=== PATIENT | female | born 1965 | race Caucasian/White ===

== ENCOUNTER 2017-02-05 19:36 | Observation (INO) | payer OTHER ==
[~2017-02-05] VITALS: Ht 149.9 cm; Wt 84.8 kg
[~2017-02-05 19:36] MED LIST: ALBU4TAB10 PO; AMT25 PO; ATEN50TA8 PO; BUPRTAB51 PO; ELET40TA PO; OXYC1TAB3 PO; PARO1TAB27 PO; ZERTEC PO; ZNTT/150 PO; [UNRECOGNIZED DRUG - OTHER] PO
[2017-02-05] MEDS ORDERED: NITROGLYCERIN OINT 2% 1GM PACKET EXT STA (20:06)
[2017-02-05 20:17] LABS: BASO % 0.1 %; BASO ABS # 0.01 K/uL (0-0.2); COMPLETE YES; HEMATOCRIT 37.2 % (37-47); IG% 0.6 %; LYMPH % 9.1 %; LYMPH ABS # 0.74 K/uL (1.2-3.4); MEAN CORPUSCULAR HEMOGLOBIN 27.2 pg (25-34); MEAN CORPUSCULAR HGB CONC 32.8 g/dl (32-36); MEAN PLATELET VOLUME 8.7 fL (7.4-10.4); MONO % 1.2 %; PLATELET COUNT 297 K/uL (130-400); RED BLOOD COUNT 4.48 M/uL (4.2-5.4); WHITE BLOOD COUNT 8.13 K/uL (4.8-10.8)
--- NOTE | 2017-02-05 20:19 | DIAGNOSTIC IMAGING REPORT ---
CHEST ONE VIEW PORTABLE CLINICAL HISTORY: Dyspnea, tachycardia, substernal chest pain COMPARISON STUDY: No previous studies for comparison. FINDINGS: The heart is normal in size. There is no failure. There is no focal pulmonary consolidation. There are no pleural effusions. No pneumothorax is visualized.[ IMPRESSION: No active disease in the chest. Electronically signed by: Emmanuel Chacon M.D. 02/05/2017 8:18 PM Dictated Date/Time: 02/05/2017 8:18 PM
[2017-02-05 20:25] LABS: INR 0.9 (0.9-1.1)
[2017-02-05 20:41] LABS: ALT/SGPT 21 U/L (12-78); AST/SGOT 7 U/L (15-37); BLOOD UREA NITROGEN 6 mg/dl (7-18); BUN/CREATININE RATIO 6.3 (10-20); CARBON DIOXIDE 20 mmol/L (21-32); CHLORIDE 106 mmol/L (98-107); CREATININE 0.95 mg/dl (0.60-1.20); GLUCOSE 218 mg/dl (70-99); MAGNESIUM 2.1 mg/dl (1.8-2.4); POTASSIUM 3.8 mmol/L (3.5-5.1); SODIUM 138 mmol/L (136-145)
[2017-02-05 20:49] LABS: BENZODIAZEPINE, URINE NEG (NEG); COCAINE,URINE NEG (NEG); PHENCYCLIDINE, URINE NEG (NEG)
[2017-02-05 20:52] LABS: ALKALINE PHOSPHATASE 62 U/L (45-117); THYROID STIMULATING HORMONE 0.416 uIu/ml (0.300-4.500)
--- NOTE | 2017-02-05 20:57 | DIAGNOSTIC IMAGING REPORT ---
CT HEAD WITHOUT CONTRAST (CT) CLINICAL HISTORY: Sudden onset severe headache. Worst headache of life. COMPARISON STUDY: No previous studies for comparison. TECHNIQUE: Axial CT of the brain is performed from the vertex to the skull base. IV contrast was not administered for this examination. CT DOSE: 537.48 mGy.cm FINDINGS: No intra or extra-axial mass lesions are visualized. There is no CT evidence of acute cortical infarction. There is no evidence of midline shift. There is no acute hemorrhage. No calvarial fractures are visualized. There is no evidence of pathologic ventricular dilatation. There is no evidence of acute sinusitis IMPRESSION: No acute intracranial findings Electronically signed by: Emmanuel Chacon M.D. 02/05/2017 8:56 PM Dictated Date/Time: 02/05/2017 8:55 PM
[2017-02-05] MEDS ORDERED: AMIT100T2 PO (21:06)
[2017-02-05] MEDS ORDERED: NORGTAB39 PO (21:06)
[2017-02-05] MEDS ORDERED: RANI300T PO (21:06)
[2017-02-05] MEDS ORDERED: PRVHFAIN INH (21:06)
[2017-02-05] MEDS ORDERED: ASTN NAE (21:13)
[2017-02-05] MEDS ORDERED: FLUT0.15 NAE (21:13)
[2017-02-05] MEDS ORDERED: PANT40TA PO (21:13)
[2017-02-05] MEDS ORDERED: CITA10TA8 PO (21:13)
[2017-02-05] MEDS ORDERED: LISI-725 PO (21:13)
[2017-02-05] MEDS ORDERED: CETI10TA10 PO (21:13)
[2017-02-05] MEDS ORDERED: METO50TA7 PO (21:13)
[2017-02-05] MEDS ORDERED: PRED10TA PO (21:13)
[2017-02-05] MEDS ORDERED: SODIUM CHLORIDE 0.9% 1000ML 1,000 ML IV STA (21:16)
[2017-02-05] MEDS ORDERED: ACETAMINOPHEN 500 MG TAB PO STA (21:16)
--- NOTE | 2017-02-05 23:15 | History and Physical ---
History & Physical Date & Time of Service: Feb 05, 2017 at 23:15 Chief Complaint: Chest Pains And Heart Rate Primary Care Physician: Miroslava Wiggins D.O. History of Present Illness Source: patient Patient is a 51 Yr old female with PMH of Anxiety disorder, IBS, HTN, GERD, DENISE on CPAP, Asthma, Migraine and other problems presents for evaluation of chest pain. 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 D-dimer was normal at that time. She has been treated with prednisone taper for possible Asthma exacerbation. States having palpitations since Thursday and complains of retrosternal dull chest pain today which is intermittent, radiates to left arm, started at rest without any aggravating/ relieving factors. Reports associated nausea, SOB, diaphoresis with chest pain. Reports having a lot of stress secondary to her daughter having issues at school. Currently while in ED, denies chest pain, SOb, wheezing. Also denies history of fever, chills, abd pain, diarrhea, urinary symptoms. Has had headache which is occipital and frontal which improved currently. Past Medical/Surgical History PMH Anxiety disorder IBS HTN GERD DENISE on CPAP Asthma Migraine Family History Reviewed, Not relevant Social History Smoking Status: Never Smoker Alcohol Use: socially Drug Use: none Multi-Drug Resistant Organisms History of MDRO: No Allergies Coded Allergies: Aspirin (Verified Allergy, Intermediate, HIVES, 07/12/13) Montelukast (Verified Allergy, Intermediate, HIVES, 07/12/13) Naproxen (Verified Allergy, Intermediate, HIVES, 07/12/13) NSAIDs (Verified Allergy, Unknown, UNKNOWN, 07/12/13) Home Medications Scheduled Amitriptyline Hcl (Elavil), 100 MG PO HS Azelastine Hcl (Astelin Nasal [place]), 1-2 SPRAYS KAY BID Cetirizine Hcl (Zyrtec), 10 MG PO HS Citalopram Hydrobromide (Celexa), 30 MG PO DAILY Fluticasone Propionate (Nasal) (Flonase Allergy Relief), 1 SPRAY KAY BID Lisinopril (Zestril), 20 MG PO DAILY Metoprolol Succ (Toprol Xl) (Toprol-Xl), 50 MG PO DAILY Norgestimate-Ethinyl Estradiol (Ortho Tri-Cyclen Lo), 1 TAB PO DAILY Pantoprazole (Protonix), 40 MG PO DAILY Prednisone Tab (Prednisone), 10 MG PO UD Ranitidine Hcl (Zantac), 300 MG PO HS Scheduled PRN Albuterol (Ventolin Hfa), 2 PUFFS INH UD PRN for Asthma Symptoms Review of Systems See HPI for pertinent positives & negatives. A total of 10 systems reviewed and were otherwise negative. Physical Exam Vital Signs Date Time Temp Pulse Resp B/P Pulse Ox O2 Delivery O2 Flow Rate FiO2 02/05/17 22:57 108 18 142/93 95 Room Air 02/05/17 22:13 119 02/05/17 21:53 109 18 168/97 95 Room Air 02/05/17 21:05 118 20 168/103 95 Room Air 02/05/17 20:38 120 18 96 Room Air 02/05/17 20:03 96 Room Air 02/05/17 19:40 36.7 132 22 208/109 96 Room Air General Appearance: WD/WN, no apparent distress, + obese Head: normocephalic, atraumatic Eyes: normal inspection, PERRL, EOMI, sclerae normal ENT: normal ENT inspection, hearing grossly normal Neck: supple, trachea midline Respiratory/Chest: chest non-tender, lungs clear, normal breath sounds, no respiratory distress, no accessory muscle use, + pertinent finding (Trace pedal edema) Cardiovascular: regular rate, rhythm, no murmur, normal peripheral pulses, + tachycardia Abdomen/GI: normal bowel sounds, non tender, soft, no organomegaly Back: normal inspection Extremities/Musculoskelatal: normal inspection, no calf tenderness, + pertinent finding (Trcae pedal edema) Neurologic/Psych: outside sales engineer II-XII nml as tested, no motor/sensory deficits, alert, normal mood/affect, oriented x 3 Skin: normal color, warm/dry Lymphatic: no adenopathy Diagnostics Laboratory Results Results Past 24 Hours Test 02/05/17 20:00 02/05/17 20:06 02/05/17 20:15 Range/Units White Blood Count 8.13 4.8-10.8 K/uL Red Blood Count 4.48 4.2-5.4 M/uL Hemoglobin 12.2 12.0-16.0 g/dL Hematocrit 37.2 37-47 % Mean Corpuscular Volume 83.0 80-100 fL Mean Corpuscular Hemoglobin 27.2 25-34 pg Mean Corpuscular Hemoglobin Concent 32.8 32-36 g/dl Platelet Count 297 130-400 K/uL Mean Platelet Volume 8.7 7.4-10.4 fL Neutrophils (%) (Auto) 89.0 % Lymphocytes (%) (Auto) 9.1 % Monocytes (%) (Auto) 1.2 % Eosinophils (%) (Auto) 0.0 % Basophils (%) (Auto) 0.1 % Neutrophils # (Auto) 7.23 1.4-6.5 K/uL Lymphocytes # (Auto) 0.74 1.2-3.4 K/uL Monocytes # (Auto) 0.10 0.11-0.59 K/uL Eosinophils # (Auto) 0.00 0-0.5 K/uL Basophils # (Auto) 0.01 0-0.2 K/uL RDW Standard Deviation 44.2 36.4-46.3 fL RDW Coefficient of Variation 14.5 11.5-14.5 % Immature Granulocyte % (Auto) 0.6 % Immature Granulocyte # (Auto) 0.05 0.00-0.02 K/uL Prothrombin Time 10.0 9.0-12.0 SECONDS Prothromb Time International Ratio 0.9 0.9-1.1 Activated Partial Thromboplast Time 25.4 21.0-31.0 SECONDS Partial Thromboplastin Ratio 1.0 Sodium Level 138 136-145 mmol/L Potassium Level 3.8 3.5-5.1 mmol/L Chloride Level 106 98-107 mmol/L Carbon Dioxide Level 20 21-32 mmol/L Anion Gap 12.0 3-11 mmol/L Blood Urea Nitrogen 6 7-18 mg/dl Creatinine 0.95 0.60-1.20 mg/dl Est Creatinine Clear Calc Drug Dose 69.0 ml/min Estimated GFR () 80.4 Estimated GFR (Non- 69.4 BUN/Creatinine Ratio 6.3 10-20 Random Glucose 218 70-99 mg/dl Calcium Level 9.0 8.5-10.1 mg/dl Magnesium Level 2.1 1.8-2.4 mg/dl Total Bilirubin 0.4 0.2-1 mg/dl Aspartate Amino Transf (AST/SGOT) 7 15-37 U/L Alanine Aminotransferase (ALT/SGPT) 21 12-78 U/L Alkaline Phosphatase 62 45-117 U/L Total Creatine Kinase 62 26-192 U/L Creatine Kinase MB < 0.5 0.5-3.6 ng/ml Creatine Kinase MB Ratio 0-3.0 Total Protein 7.5 6.4-8.2 gm/dl Albumin 3.8 3.4-5.0 gm/dl Globulin 3.7 2.5-4.0 gm/dl Albumin/Globulin Ratio 1.0 0.9-2 Lipase 143 73-393 U/L Thyroid Stimulating Hormone (TSH) 0.416 0.300-4.500 uIu/ml Bedside D-Dimer 241 0-450 ng/mlFEU Bedside Troponin I 0.000 0-0.045 ng/ml SB-Cbs-T-Type Natriuretic Peptide 48 0-900 pg/ml Urine Test NEG NEG Urine Opiates Screen NEG NEG Urine Methadone, Qualitative NEG NEG Urine Barbiturates NEG NEG Urine Phencyclidine (PCP) Level NEG NEG Ur Amphetamine/Methamphetamine NEG NEG MDMA (Ecstasy) Screen NEG NEG Urine Benzodiazepines Screen NEG NEG Urine Cocaine Metabolite NEG NEG Urine Marijuana (THC) NEG NEG Diagnostic Radiology CT Head: No acute intracranial findings CXR: No active disease in the chest. EKG EKG: Sinus Tachycardia Impression Assessment and Plan Chest Pain: R/O ACS Likely secondary to anxiety/Uncontrolled HTN Risk factors: HTN, Obesity Initial troponin:Negative EKG:Sinus tachycardia Negative D-dimer CXR: Unremarkable Check ECHO Trend serial cardiac enzymes, repeat EKG, fasting lipid panel in AM Patient is allergic to Aspirin, Continue beta willie Oxygen PRN Consider Stress test in AM NPO after midnight Cardiology consulted Hypertensive Urgency/Tachycardia: Likely secondary to anxiety issues Negative d-dimer, less likely PE Continue lisinopril, BB Lopressor PRN Currently BP improved Headache: Likely secondary to migraine CT head: No acute pathology Continue amitriptyline H/O asthma: Doesn't seemed to have exacerbation clinically Continue steroid taper DuoNeb PRN Anxiety disorder: Continue home meds GERD: Continue PPI DENISE: Continue CPAP Qhs DVT Px: SCDs Code Status: Full Code Disposition: Admit in Tele
[2017-02-06] MEDS ORDERED: SODIUM CHLORIDE 0.9% 1000ML 1,000 ML IV ONE
[2017-02-06] MEDS ORDERED: ALBUT/IPRATROP 3MG/0.5MG NEB 3 ML VIAL INH PRN
[2017-02-06] MEDS ORDERED: ONDANSETRON INJ 2 MG/ML 2 ML VIAL IV PRN
[2017-02-06] MEDS ORDERED: ACETAMINOPHEN 325 MG TAB PO PRN
[2017-02-06] MEDS ORDERED: NITROGLYCERIN 0.4 MG SL PER TAB CHARGE SL PRN
[2017-02-06] MEDS ORDERED: METOPROLOL TARTRATE 1 MG/ML VIAL IV PRN (00:15)
[2017-02-06] MEDS ORDERED: IV FLUIDS COMPLETED PRN (00:45)
[2017-02-06 01:00] VITALS: BP 159/86; PULSE 105; TEMP 36.7; O2SAT 95; Ht 149.9 cm; Wt 84.8 kg
--- NOTE | 2017-02-06 02:01 | EMERGENCY ROOM VISIT NOTE ---
History First contact with patient: 19:47 Chief Complaint: CHEST PAIN Stated Complaint: CHEST PAIN Nursing Triage Summary: Patient states "I'm having some chest pains, my heart rate has been up for the last few days and it got worse." Reports shortness of breath, diaphoresis, nausea, and headache. History of Present Illness The patient is a 51 year old female who presents to the Emergency Room via private vehicle with complaints of "chest pain". The patient states that Thursday she was working at [employer], when she was recommended to seek medical care as her heart rate was elevated as well as her blood pressure. She states that she had a d-dimer performed which was normal. She was then placed upon prednisone. She notes that Thursday her heart rate continue to increase persistently above 100, and her blood pressure was 150/84. She takes 2 blood pressure medications. Today she felt very warm, and her heart was racing. Her chest pain has been substernal which began this evening around 6:00 PM and radiating into her left arm. She rates the chest pain as a 5 /10. There is associated headache that she rates as a 6/10. She has never had this before. Review of Systems A complete 10-point Review of Systems was discussed with the patient, with pertinent positives and negatives listed in the History of Present Illness. All remaining Review of Systems questions can be considered negative unless otherwise specified. Past Medical/Surgical History Medical Problems: (1) Chest pain Asthma, DENISE, GERD, hypertension, dependent edema, hyperprolactinemia, anxiety. Family History Mother hypertension. Father MN/CABG age 50s Social History Smoking Status: Never Smoker Social History: Patient is . 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 She lives with her daughter. Current/Historical Medications Scheduled Amitriptyline Hcl (Elavil), 100 MG PO HS Azelastine Hcl (Astelin Nasal [place]), 1-2 SPRAYS KAY BID Cetirizine Hcl (Zyrtec), 10 MG PO HS Citalopram Hydrobromide (Celexa), 30 MG PO DAILY Fluticasone Propionate (Nasal) (Flonase Allergy Relief), 1 SPRAY KAY BID Lisinopril (Zestril), 20 MG PO DAILY Metoprolol Succ (Toprol Xl) (Toprol-Xl), 50 MG PO DAILY Norgestimate-Ethinyl Estradiol (Ortho Tri-Cyclen Lo), 1 TAB PO DAILY Pantoprazole (Protonix), 40 MG PO DAILY Prednisone Tab (Prednisone), 10 MG PO UD Ranitidine Hcl (Zantac), 300 MG PO HS Scheduled PRN Albuterol (Ventolin Hfa), 2 PUFFS INH UD PRN for Asthma Symptoms Allergies Coded Allergies: Aspirin (Verified Allergy, Intermediate, HIVES, 07/12/13) Montelukast (Verified Allergy, Intermediate, HIVES, 07/12/13) Naproxen (Verified Allergy, Intermediate, HIVES, 07/12/13) NSAIDs (Verified Allergy, Unknown, UNKNOWN, 07/12/13) Physical Exam Vital Signs Date Time Temp Pulse Resp B/P Pulse Ox O2 Delivery O2 Flow Rate FiO2 02/05/17 22:57 108 18 142/93 95 Room Air 02/05/17 22:13 119 02/05/17 21:53 109 18 168/97 95 Room Air 02/05/17 21:05 118 20 168/103 95 Room Air 02/05/17 20:38 120 18 96 Room Air 02/05/17 20:03 96 Room Air 02/05/17 19:40 36.7 132 22 208/109 96 Room Air Pain Rating (0-10): 3.0 Physical Exam VITAL SIGNS - Vital signs and nursing notes were reviewed. Afebrile, hypertensive at 208/109, tachycardic at a rate of 132 bpm and is saturating well on room air 96%. GENERAL -51-year-old female appearing her stated age who is in no acute distress. Communicates well with provider and answers questions appropriately. SKIN - Without rashes. No petechial rashes. Patient is slightly diaphoretic. HEAD - NC/AT. EYES - PERRL with EOMI bilaterally. Sclera anicteric. Palpebral conjunctiva pink and moist with no injection noted. EARS - No deformities of external structures noted on gross examination bilaterally. NOSE - Midline and without cyanosis. No epistaxis or purulent drainage noted. MOUTH/OROPHARYNX - Without perioral cyanosis. Buccal mucosa pink and moist and without leukoplakia. Tongue midline with equal elevation of palate bilaterally. No tonsillar hypertrophy, erythema, or exudates noted. Fair dentition noted. NECK - Neck with FROM. Supple to palpation. No lymphadenopathy noted. No nuchal rigidity. LUNGS - Chest wall symmetric without accessory muscle use, intercostals retractions, or central cyanosis. Normal vesicular breath sounds CTA B/L. No wheezes, rales, or rhonchi appreciated. CARDIAC - RRR with S1/S2. No murmur, rubs, or gallops appreciated. ABDOMEN - Abdominal contour without pulsations or visible masses. BS normoactive all four quadrants. No tenderness, palpable masses, hepatosplenomegaly, or ascites noted. EXTREMITIES - No clubbing or peripheral cyanosis. No pretibial edema present. + 5/5 strength noted in UE/LE bilaterally. NEUROLOGIC - Cranial nerves II through XII grossly intact. PSYCH - Pt is very pleasant and interacts well with examiner. Medical Decision & Procedures ER Provider Diagnostic Interpretation: CHEST ONE VIEW PORTABLE CLINICAL HISTORY: Dyspnea, tachycardia, substernal chest pain COMPARISON STUDY: No previous studies for comparison. FINDINGS: The heart is normal in size. There is no failure. There is no focal pulmonary consolidation. There are no pleural effusions. No pneumothorax is visualized.[ IMPRESSION: No active disease in the chest. Electronically signed by: Emmanuel Chacon M.D. 02/05/2017 8:18 PM Dictated Date/Time: 02/05/2017 8:[address] HEAD WITHOUT CONTRAST (CT) CLINICAL HISTORY: Sudden onset severe headache. Worst headache of life. COMPARISON STUDY: No previous studies for comparison. TECHNIQUE: Axial CT of the brain is performed from the vertex to the skull base. IV contrast was not administered for this examination. CT DOSE: 537.48 mGy.cm FINDINGS: No intra or extra-axial mass lesions are visualized. There is no CT evidence of acute cortical infarction. There is no evidence of midline shift. There is no acute hemorrhage. No calvarial fractures are visualized. There is no evidence of pathologic ventricular dilatation. There is no evidence of acute sinusitis IMPRESSION: No acute intracranial findings Electronically signed by: Emmanuel Chacon M.D. 02/05/2017 8:56 PM Laboratory Results 02/05/17 20:00 Red Blood Count 4.48, Mean Corpuscular Volume 83.0, Mean Corpuscular Hemoglobin 27.2, Mean Corpuscular Hemoglobin Concent 32.8, Mean Platelet Volume 8.7, Neutrophils (%) (Auto) 89.0, Lymphocytes (%) (Auto) 9.1, Monocytes (%) (Auto) 1.2, Eosinophils (%) (Auto) 0.0, Basophils (%) (Auto) 0.1, Neutrophils # (Auto) 7.23, Lymphocytes # (Auto) 0.74, Monocytes # (Auto) 0.10, Eosinophils # (Auto) 0.00, Basophils # (Auto) 0.01 02/05/17 20:00 Test 02/05/17 20:00 02/05/17 20:06 02/05/17 20:15 White Blood Count 8.13 K/uL (4.8-10.8) Red Blood Count 4.48 M/uL (4.2-5.4) Hemoglobin 12.2 g/dL (12.0-16.0) Hematocrit 37.2 % (37-47) Mean Corpuscular Volume 83.0 fL (80-100) Mean Corpuscular Hemoglobin 27.2 pg (25-34) Mean Corpuscular Hemoglobin Concent 32.8 g/dl (32-36) Platelet Count 297 K/uL (130-400) Mean Platelet Volume 8.7 fL (7.4-10.4) Neutrophils (%) (Auto) 89.0 % Lymphocytes (%) (Auto) 9.1 % Monocytes (%) (Auto) 1.2 % Eosinophils (%) (Auto) 0.0 % Basophils (%) (Auto) 0.1 % Neutrophils # (Auto) 7.23 K/uL (1.4-6.5) Lymphocytes # (Auto) 0.74 K/uL (1.2-3.4) Monocytes # (Auto) 0.10 K/uL (0.11-0.59) Eosinophils # (Auto) 0.00 K/uL (0-0.5) Basophils # (Auto) 0.01 K/uL (0-0.2) RDW Standard Deviation 44.2 fL (36.4-46.3) RDW Coefficient of Variation 14.5 % (11.5-14.5) Immature Granulocyte % (Auto) 0.6 % Immature Granulocyte # (Auto) 0.05 K/uL (0.00-0.02) Prothrombin Time 10.0 SECONDS (9.0-12.0) Prothromb Time International Ratio 0.9 (0.9-1.1) Activated Partial Thromboplast Time 25.4 SECONDS (21.0-31.0) Partial Thromboplastin Ratio 1.0 Anion Gap 12.0 mmol/L (3-11) Est Creatinine Clear Calc Drug Dose 69.0 ml/min Estimated GFR () 80.4 Estimated GFR (Non- 69.4 BUN/Creatinine Ratio 6.3 (10-20) Calcium Level 9.0 mg/dl (8.5-10.1) Magnesium Level 2.1 mg/dl (1.8-2.4) Total Bilirubin 0.4 mg/dl (0.2-1) Aspartate Amino Transf (AST/SGOT) 7 U/L (15-37) Alanine Aminotransferase (ALT/SGPT) 21 U/L (12-78) Alkaline Phosphatase 62 U/L (45-117) Total Creatine Kinase 62 U/L (26-192) Total Protein 7.5 gm/dl (6.4-8.2) Albumin 3.8 gm/dl (3.4-5.0) Globulin 3.7 gm/dl (2.5-4.0) Albumin/Globulin Ratio 1.0 (0.9-2) Lipase 143 U/L (73-393) Thyroid Stimulating Hormone (TSH) 0.416 uIu/ml (0.300-4.500) Bedside D-Dimer 241 ng/mlFEU (0-450) Bedside Troponin I 0.000 ng/ml (0-0.045) UH-Eaw-F-Type Natriuretic Peptide 48 pg/ml (0-900) Urine Test NEG (NEG) Urine Opiates Screen NEG (NEG) Urine Methadone, Qualitative NEG (NEG) Urine Barbiturates NEG (NEG) Urine Phencyclidine (PCP) Level NEG (NEG) Ur Amphetamine/Methamphetamine NEG (NEG) MDMA (Ecstasy) Screen NEG (NEG) Urine Benzodiazepines Screen NEG (NEG) Urine Cocaine Metabolite NEG (NEG) Urine Marijuana (THC) NEG (NEG) Medications Administered Medications (Trade) Dose Ordered Sig/Barron Route Start Time Stop Time Status Last Admin Dose Admin Nitroglycerin 0.5 inch 0.5 inch NOW STAT EXT 02/05/17 20:06 02/05/17 20:07 DC 02/05/17 20:26 0.5 INCH Sodium Chloride (Nss 1000ml) 1,000 ml @ 999 mls/hr Q1H1M STAT IV 02/05/17 21:16 02/05/17 22:16 DC 02/05/17 21:16 999 MLS/HR Acetaminophen (Tylenol Tab) 500 mg NOW STAT PO 02/05/17 21:16 02/05/17 21:17 DC 02/05/17 21:38 500 MG Medical Decision Patient was seen and evaluated as above. After obtaining a thorough history and physical examination IV access was initiated and the above workup was performed. The patient presents with chest pain that began this evening as well as worst headache of her life which was of sudden onset. Headache began less than 6 hours ago. She has a history of headaches. CT scan of the head was obtained and attempt to rule out sub-arachnoid hemorrhage. This was negative for acute process. Patient was given Tylenol for her pain with relief of the headache symptoms and nitroglycerin for the chest pain with relief. She was also hydrated with a liter of normal saline. Her laboratory studies reveal no leukocytosis or anemia. Coagulation studies are negative. Point care d- dimer negative. Initial CMP reveals carbon dioxide at 20, anion gap of 12 and BUN at 6, glucose is elevated at 218. Patient has no history of diabetes. She was educated to have this further evaluated by her family doctor. Initial troponin was negative. BNP was negative. Lipase and TSH are negative. Urine negative. Urine drug screen was negative. Patient's chest x-ray and head CT are negative. Patient this time appears to have chest pain however emergency department initial evaluation does not reveal evidence of ACS, however this cannot be completely excluded. EKG reveals sinus tachycardia, there is an ST segment abnormality noted at a rate of 133 bpm. No previous for comparison. At this time I do believe is appropriate to admit the patient for further evaluation and management for her chest pain. I did speak with the admission team who agreed to evaluate the patient. Please refer to further documentation regarding her stay. Patient was also in agreement to stay for further evaluation and management. In evaluation and treatment of this patient the following differential diagnoses were entertained: AMI, MN, PE, pleurisy, pericarditis, GERD, erosive esophagitis, among others. Impression Primary Impression: Chest pain Departure Information Dispostion Admitted as an inpatient Condition FAIR Referrals Miroslava Wiggins D.O. (PCP) Forms HOME CARE DOCUMENTATION FORM, IMPORTANT VISIT INFORMATION Patient Instructions [facility]
[2017-02-06] MEDS ORDERED: METOPROLOL SUCC 50MG EXT REL TAB PO ONE (02:30)
[2017-02-06] MEDS ORDERED: AMITRIPTYLINE HCL 100 MG TAB PO ONE (02:30)
[2017-02-06 03:49] VITALS: BP 142/76; PULSE 106; TEMP 36.7; O2SAT 97
[2017-02-06 07:20] LABS: CHOLESTEROL 126 mg/dl (0-200); HDL CHOLESTEROL 42 mg/dl; LDL CHOLESTEROL CALCULATED 22 mg/dl; TRIGLYCERIDES 311 mg/dl (0-150); VERY LOW DENSITY LIPOPROT CALC 62 mg/dl
[2017-02-06 08:21] VITALS: BP 161/89; PULSE 98; TEMP 36.6; O2SAT 94
[2017-02-06] MEDS ORDERED: CITALOPRAM 20 MG TAB PO SCH (09:00)
[2017-02-06] MEDS ORDERED: METOPROLOL SUCC 50MG EXT REL TAB PO SCH (09:00)
[2017-02-06] MEDS ORDERED: PANTOprazole SOD 40 MG TAB PO SCH (09:00)
[2017-02-06] MEDS ORDERED: LISINOPRIL 20 MG TAB PO SCH (09:00)
[2017-02-06] MEDS ORDERED: FLUTICASONE PROPIONATE NA SPR 16 GM BTL NAE SCH (09:00)
--- NOTE | 2017-02-06 09:01 | ECHOCARDIOGRAM REPORT ---
*NOTICE TO RECEIVING LIBERTARIAN AGENCY This information is strictly Confidential and protected under [place] law. [place] law prohibits you from making any further disclosure of this information unless further disclosure is expressly permitted by the written consent of the person to whom it pertains or is authorized by law. A general authorization for the release of medical or other information is not sufficient for this purpose. Hospital accepts no responsibility if the information is made available to any other person, INCLUDING THE PATIENT. Interpretation Summary * Name: RONIT LINDO Study Date: 02/06/2017 07:20 AM BP: 142/76 mmHg * Patient Location: C.2E\S\E209\S\1 HR: 106 * : 1965 (M/d/yyyy) Gender: Female Height: 60 in * Age: 51 yrs Ethnicity: CA Weight: 197 lb * Ordering Physician: Gio Rodney * Performed By: Iman Caban RDCS * * Reason For Study: Chest pain * BSA: 1.9 m2 * -- Conclusions -- * The left ventricle is normal in size. * Left ventricular systolic function is normal. * Ejection Fraction = 60-65%. * The right ventricle is normal size. * The right ventricular systolic function is normal. * The left atrial size is normal. * Right atrial size is normal. * No significant vavular pathology. Procedure Details * A complete two-dimensional transthoracic echocardiogram was performed (2D, M-mode, Doppler and color flow Doppler). Left Ventricle * The left ventricle is normal in size. * Ejection Fraction = 60-65%. * Left ventricular systolic function is normal. * The left ventricular wall motion is normal. Right Ventricle * The right ventricle is normal size. * The right ventricular systolic function is normal. Atria * The left atrial size is normal. * Right atrial size is normal. * The interatrial septum is intact with no evidence for an atrial septal defect. Mitral Valve * The mitral valve anatomy is normal. * Significant mitral regurgitation is absent. Tricuspid Valve * The tricuspid valve anatomy is normal. * Significant tricuspid regurgitation is absent. Aortic Valve * The aortic valve is normal in structure and function. Pulmonic Valve * The pulmonic valve is not well visualized. * There is no significant pulmonary regurgitation. Great Vessels * The aortic root and proximal ascending aorta are normal sized. Pericardium/Pleural * There is no pericardial effusion. MMode 2D Measurements and Calculations IVSd 0.79 cm LVIDd 4.6 cm LVIDs 2.9 cm LVPWd 0.90 cm IVS/LVPW 0.87 FS 36.6 % EDV(Teich) 96.1 ml ESV(Teich) 32.3 ml EF(Teich) 66.4 % EDV(cubed) 95.7 ml ESV(cubed) 24.4 ml EF(cubed) 74.5 % LV mass(C)d 125.8 grams LV mass(C)dI 67.8 grams/m\S\2 CO(Teich) 6.2 l/min CI(Teich) 3.3 l/min/m\S\2 SV(Teich) 63.8 ml SI(Teich) 34.4 ml/m\S\2 CO(cubed) 6.9 l/min CI(cubed) 3.7 l/min/m\S\2 SV(cubed) 71.3 ml SI(cubed) 38.4 ml/m\S\2 Ao root diam 2.8 cm Ao root area 6.2 cm\S\2 ACS 1.7 cm LA dimension 2.5 cm asc Aorta Diam 3.0 cm LA/Ao 0.91 LVOT diam 2.0 cm LVOT area 3.3 cm\S\2 LVAd ap4 21.9 cm\S\2 LVLd ap4 7.3 cm EDV(MOD-sp4) 54.1 ml LVAs ap4 11.6 cm\S\2 LVLs ap4 5.7 cm ESV(MOD-sp4) 20.4 ml EF(MOD-sp4) 62.3 % LVAd ap2 18.7 cm\S\2 LVLd ap2 6.8 cm EDV(MOD-sp2) 42.9 ml LVAs ap2 9.7 cm\S\2 LVLs ap2 5.0 cm ESV(MOD-sp2) 15.8 ml EF(MOD-sp2) 63.2 % CO(MOD-sp4) 3.3 l/min CI(MOD-sp4) 1.8 l/min/m\S\2 SV(MOD-sp4) 33.7 ml SI(MOD-sp4) 18.2 ml/m\S\2 CO(MOD-sp2) 2.6 l/min CI(MOD-sp2) 1.4 l/min/m\S\2 SV(MOD-sp2) 27.1 ml SI(MOD-sp2) 14.6 ml/m\S\2 Doppler Measurements and Calculations MV E max felix 89.7 cm/sec MV A max felix 82.5 cm/sec MV E/A 1.1 MV dec time 0.31 sec Ao V2 max 155.6 cm/sec Ao max PG 9.7 mmHg Ao max PG (full) 6.2 mmHg GRUPO(V,A) 2.0 cm\S\2 GRUPO(V,D) 2.0 cm\S\2 LV V1 max PG 3.5 mmHg LV V1 max 93.1 cm/sec PA V2 max 114.0 cm/sec PA max PG 5.2 mmHg PA acc slope 876.1 cm/sec\S\2 PA acc time 0.09 sec TR max felix 142.4 cm/sec PA pr(Accel) 39.4 mmHg
--- NOTE | 2017-02-06 09:35 | Cardiology Consultation ---
Cardiology Consultation Date of Consultation: Feb 06, 2017 Requesting Physician: Dr. Rodney Attending Product Sales Representative: Dr. Gomes (Jamee Swift PA-C) History of Present Illness Patient is a 51 year old female with a past history of DENISE, asthma, GERD, hypertension, anxiety, dependent edema, and hyperprolactinemia. She denies history of cardiovascular disease, NH, CHF, arrhythmia, murmur. No prior stress test or echo. SHe does state she has family history of cardiovascular disease with father having CABG age 50's. Other family members with hypertension. She states she has not been feeling well over the last few weeks with worsening SOB, chest tightness and palpitations. She admits to alot of emotional stress at home with her daughter and school issues. She was recently treated by PCP for episode of bronchitis with steroid taper. Last Thursday, symptoms worsened, patient noted palpitations and SOB. She works at [employer] and they reported her HR was in the 130's with hypertension. She subsequently saw PCP, D-dimer was unremarkable. BP was controlled in the office. She was continued on Toprol 50 and lisinopril 20 mg. She states yesterday evening she noted chest tightness with radiation to left arm associated with SOB. She came to ER for evaluation. HR was elevated. BP was elevated. Symptoms improved with IV metoprolol. Chest pain also resolved with improvement in HR and BP. EKG demonstrated mild ST/T wave abnormality. No prior EKG's for comparison. Cardiac enzymes unremarkable x3. At time of consult, patient feeling better. No recurrent chest pain or SOB. No sense of palpitations. BP is mildly elevated this AM. States she normally takes Toprol and lisinopril at night and did not take it last night. Is currently getting her medications. No dizziness, syncope or near syncope. No orthopnea, PND or LE edema. (Jamee Swift PA-C) History Past Medical History: Allergic rhinitis Anxiety Asthma Benign neoplasm of pituitary gland Hyperprolactinemia HTN, goal below 140/90 IBS (irritable bowel syndrome) Migraine Panic disorder Surgical History DELIVERY 2000 COLONOSCOPY, DIAGNOSTIC (RECTUM) 04/11/2016 normal, repeat 10 yrs EGD, FLEXIBLE, DIAGNOSTIC 04/11/2016 normal HYSTEROSCOPY W/BIOPSY AND/OR POLYPECTOMY W/WO D&C N/A 01/31/2016 HYSTEROSCOPY WITH BIOPSY AND/OR POLYPECTOMY WITH OR WITHOUT D&C performed by Anand Saab MD at OR [facility] INFORMATION 1996 Benign growth removed L1-L2 INFORMATION 07/23/04 sphenoidotomy, right and left frontal sinsotomy [id number] W/WO CONTRAST 05/07/04 Pituitary microadenoma is stable LEG/ANKLE SURGERY NEC 04/21/08 left ankle surgery MAMMOGRAM - 1 BREAST 11/10/07 right breast Birad Code [address] cohen PELVIS US, TRANS-ABDOMINAL 09/14/03 negative for abcess REMOVAL OF NOSE POLYP(S), AMANDA 2003? Nose Polyp(S) Excision,Amanda -Dr. Muniz REMOVE TONSILS & ADENOIDS, UNDER 12 SINUS SURGERY PROCEDURE NEC 2003? Dr. Muniz Social History: . Lives with daughter. 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. No history of tobacco abuse. Rare alcohol use. Family History: Father with NH/CABG age 50's, now with pacemaker/defib in 80's. Mother with HTN. (Jamee Swift PA-C) Review Of Systems General: The patient denies weight change, night sweats, fever, chills. Head: The patient denies headache and prior head trauma. Cardiovascular: The patient denies chest pain or chest discomfort, dyspnea on exertion, palpitations, PND, orthopnea, edema, spontaneous shortness of breath, syncope and near syncope. Pulmonary: The patient denies cough, wheeze, pleurisy, hemoptysis, sputum, and excessive snoring. Gastrointestinal: The patient denies nausea, vomiting, diarrhea, constipation, bloating, hematemesis, hematochezia, and abdominal pain. Skin: The patient denies diaphoresis and rash. Musculoskeletal: The patient denies joint pain, joint swelling, myalgia, back pain, neck pain and prior injuries. Neurological: The patient denies prior stroke and seizures (Jamee Swift PA-C) Allergies Coded Allergies: Aspirin (Verified Allergy, Intermediate, HIVES, 07/12/13) Montelukast (Verified Allergy, Intermediate, HIVES, 07/12/13) Naproxen (Verified Allergy, Intermediate, HIVES, 07/12/13) NSAIDs (Verified Allergy, Unknown, UNKNOWN, 07/12/13) Medications Reported Home Medications Medications Dose Route/Sig Max Daily Dose Days Date Category Dose Instructions Prednisone 10 Mg Tab 10 Mg PO UD 02/05/17 Reported TAPER DOWN DOSING PRESCRIBED 02/04/2017 FOLLOWS: TAKE 5 TABLETS (50 MG) DAILY FOR 2 DAYS THEN, TAKE 4 TABLETS (40 MG) DAILY FOR 2 DAYS THEN, TAKE 3 TABLETS (30 MG) DAILY FOR 2 DAYS THEN, TAKE 2 TABLETS (20 MG) DAILY FOR 2 DAYS THEN, TAKE 1 TABLET (10 MG) DAILY FOR 2 DAYS. Protonix (Pantoprazole Sodium) 40 Mg Tab 40 Mg PO DAILY 02/05/17 Reported Celexa (Citalopram Hydrobromide) 10 Mg Tab 30 Mg PO DAILY 02/05/17 Reported Toprol-Xl (Metoprolol Succinate) 50 Mg Tabcr 50 Mg PO DAILY 02/05/17 Reported Zestril (Lisinopril) 20 Mg Tab 20 Mg PO DAILY 02/05/17 Reported Astelin Nasal [place] (Azelastine Hcl) 200 Sprays/30 Ml [place] 1-2 Sprays KAY BID 02/05/17 Reported Flonase Allergy Relief (Fluticasone Propionate (Nasal)) 50 Mcg/Act Spr 1 [place] KAY BID 02/05/17 Reported Zyrtec (Cetirizine Hcl) 10 Mg Tab 10 Mg PO HS 02/05/17 Reported Ortho Tri-Cyclen Lo (Norgestimate-Ethinyl Estradiol) 1 Tab Tab 1 Tab PO DAILY 02/05/17 Reported Ventolin Hfa (Albuterol) 60 Puffs/5400 Mcg Aers 2 Puffs INH UD PRN 02/05/17 Reported Elavil (Amitriptyline Hcl) 100 Mg Tab 100 Mg PO HS 02/05/17 Reported Zantac (Ranitidine Hcl) 300 Mg Tab 300 Mg PO HS 02/05/17 Reported (Jamee Swift PA-C) Physical Exam Vital Signs (Last 8hrs): Last 8 Hrs Date Time Temp Pulse Resp B/P Pulse Ox O2 Delivery O2 Flow Rate FiO2 02/06/17 08:21 36.6 98 16 161/89 94 Room Air 02/06/17 04:12 Room Air 02/06/17 03:49 36.7 106 22 142/76 97 Room Air 02/06/17 01:00 36.7 105 19 159/86 95 Room Air 02/06/17 00:26 108 18 154/91 95 Room Air General Appearance: Alert and Oriented x3. NAD. Head: Normocephalic Atraumatic. Eyes: PERRLA, EOMI, conjunctiva and sclera clear Neck: Supple. No carotid bruits noted. No JVD. No HJD. Respiratory: Breath sounds clear to auscultation bilaterally. No w/r/r. Cardiovascular: Reg rate and rhythm. S1 and S2 noted. No murmurs, rubs, gallops. PMI non displace. Abdomen: Normal bowel sounds, soft nontender. no abdominal bruits. Extremities: No edema, no clubbing or cyanosis. distal pulses 2/4 bilaterally. Neuro: No focal deficits. Psychiatric: Normal affect. (Jamee Swift, SABINA) Data Last 24 Hours Test 02/05/17 20:00 02/05/17 20:06 02/05/17 20:15 02/05/17 23:59 White Blood Count 8.13 K/uL Red Blood Count 4.48 M/uL Hemoglobin 12.2 g/dL Hematocrit 37.2 % Mean Corpuscular Volume 83.0 fL Mean Corpuscular Hemoglobin 27.2 pg Mean Corpuscular Hemoglobin Concent 32.8 g/dl Platelet Count 297 K/uL Mean Platelet Volume 8.7 fL Neutrophils (%) (Auto) 89.0 % Lymphocytes (%) (Auto) 9.1 % Monocytes (%) (Auto) 1.2 % Eosinophils (%) (Auto) 0.0 % Basophils (%) (Auto) 0.1 % Neutrophils # (Auto) 7.23 K/uL Lymphocytes # (Auto) 0.74 K/uL Monocytes # (Auto) 0.10 K/uL Eosinophils # (Auto) 0.00 K/uL Basophils # (Auto) 0.01 K/uL RDW Standard Deviation 44.2 fL RDW Coefficient of Variation 14.5 % Immature Granulocyte % (Auto) 0.6 % Immature Granulocyte # (Auto) 0.05 K/uL Prothrombin Time 10.0 SECONDS Prothromb Time International Ratio 0.9 Activated Partial Thromboplast Time 25.4 SECONDS Partial Thromboplastin Ratio 1.0 Sodium Level 138 mmol/L Potassium Level 3.8 mmol/L Chloride Level 106 mmol/L Carbon Dioxide Level 20 mmol/L Anion Gap 12.0 mmol/L Blood Urea Nitrogen 6 mg/dl Creatinine 0.95 mg/dl Est Creatinine Clear Calc Drug Dose 69.0 ml/min Estimated GFR () 80.4 Estimated GFR (Non- 69.4 BUN/Creatinine Ratio 6.3 Random Glucose 218 mg/dl Calcium Level 9.0 mg/dl Magnesium Level 2.1 mg/dl Total Bilirubin 0.4 mg/dl Aspartate Amino Transf (AST/SGOT) 7 U/L Alanine Aminotransferase (ALT/SGPT) 21 U/L Alkaline Phosphatase 62 U/L Total Creatine Kinase 62 U/L Creatine Kinase MB < 0.5 ng/ml Creatine Kinase MB Ratio Total Protein 7.5 gm/dl Albumin 3.8 gm/dl Globulin 3.7 gm/dl Albumin/Globulin Ratio 1.0 Lipase 143 U/L Thyroid Stimulating Hormone (TSH) 0.416 uIu/ml Bedside D-Dimer 241 ng/mlFEU Bedside Troponin I 0.000 ng/ml SA-Dom-Z-Type Natriuretic Peptide 48 pg/ml Urine Test NEG Urine Opiates Screen NEG Urine Methadone, Qualitative NEG Urine Barbiturates NEG Urine Phencyclidine (PCP) Level NEG Ur Amphetamine/Methamphetamine NEG MDMA (Ecstasy) Screen NEG Urine Benzodiazepines Screen NEG Urine Cocaine Metabolite NEG Urine Marijuana (THC) NEG Test 02/06/17 02:12 02/06/17 05:53 02/06/17 05:59 Creatine Kinase MB < 0.5 ng/ml < 0.5 ng/ml Troponin I < 0.015 ng/ml < 0.015 ng/ml Triglycerides Level 311 mg/dl Cholesterol Level 126 mg/dl HDL Cholesterol 42 mg/dl LDL Cholesterol, Calculated 22 mg/dl VLDL Cholesterol, Calculated 62 mg/dl Cholesterol/HDL Ratio 3.0 Creatine Kinase MB Ratio Imaging: Head CT on admission: IMPRESSION: No acute intracranial findings Chest xray on admission: IMPRESSION: No active disease in the chest. Echo reviewed, per report: * The left ventricle is normal in size. * Left ventricular systolic function is normal. * Ejection Fraction = 60-65%. * The right ventricle is normal size. * The right ventricular systolic function is normal. * The left atrial size is normal. * Right atrial size is normal. * No significant valvular pathology EKG: On admission, 02/05/17: Sinus tachycardia Low voltage QRS Nonspecific ST abnormality Abnormal ECG No previous ECGs available Repeat EKG this AM, 02/06/17: Normal sinus rhythm Nonspecific T wave abnormality Telemetry reviewed: Normal sinus rhythm, Sinus tachycardia rates 90-110. (Jamee Swift PA-C) Assessment & Plan 1. Chest pain/SOB -EKG with non specific ST/T wave abnormalities, no prior for comparison -Symptoms may be secondary to anxiety, sinus tach, and elevated BP? -Cardiac enzymes unremarkable -echo with normal LV function, no valvular disease -No prior stress test -She does have risk factors for CAD - family history of premature CAD, hypertension, obesity -Await repeat BP readings this AM after receiving medications. If BP improves , will schedule patient for dobutamine stress echo today to r/o ischemia. -Patient states she often has dyspnea with minimal exertion and history of asthma, and likely would not walk very far on a treadmill. 2. Hypertension -recently controlled as outpatient -continue lisinopril and toprol -monitor this AM after receiving medications 3. Sinus tachycardia - -secondary to anxiety and likely prednisone taper -continue home dose toprol -currently HR around 100, asymptomatic Case to be discussed with Dr. Gomes. (Jamee Swift PA-C) CARDIOLOGY ATTENDING ADDENDUM: The patient was seen and personally examined. Agree with Jamee Swift PA-C's findings and plans as documented above. Stress test was negative today. Ok to be D/C per hospitalist. Would like to see in follow-up. (Lit Gomes, DO)
[2017-02-06 10:06] VITALS: BP 134/76
[2017-02-06] MEDS ORDERED: DOBUTamine HCL 12.5 MG/ML 20 ML VIAL ONE (11:29)
[2017-02-06] MEDS ORDERED: METOPROLOL TARTRATE 1 MG/ML VIAL ONE (11:29)
[2017-02-06] MEDS ORDERED: ATROPINE SULFATE 0.1 MG/ML 5ML SYR ONE (11:29)
--- NOTE | 2017-02-06 12:37 | Progress Note ---
Medicine Progress Note Date & Time of Visit: Feb 06, 2017 at 12:08. Subjective Pt was seen and examined Lying in bed with no distress Pt said that her palpitation improved denies any chest pain at this time breathing is much better Objective Last 8 Hrs Date Time Temp Pulse Resp B/P Pulse Ox O2 Delivery O2 Flow Rate FiO2 02/06/17 10:06 134/76 02/06/17 08:21 36.6 98 16 161/89 94 Room Air 02/06/17 08:00 Room Air 02/06/17 04:12 Room Air Physical Exam: General- No acute distress Head- atraumatic Eyes- PERRL, EOMI ENT- oropharynx clear Neck- supple, no JVD Lungs- No wheezing, no crackles Heart- Tachycardia, no murmur Abdomen- normal bowel sounds, soft Extremities- no calf tenderness Neuro- alert, oriented x 3; PERRL, EOMI; no facial palsy Skin- warm & dry Laboratory Results: Last 24 Hours Test 02/05/17 20:00 02/05/17 20:06 02/05/17 20:15 02/05/17 23:59 White Blood Count 8.13 K/uL Red Blood Count 4.48 M/uL Hemoglobin 12.2 g/dL Hematocrit 37.2 % Mean Corpuscular Volume 83.0 fL Mean Corpuscular Hemoglobin 27.2 pg Mean Corpuscular Hemoglobin Concent 32.8 g/dl Platelet Count 297 K/uL Mean Platelet Volume 8.7 fL Neutrophils (%) (Auto) 89.0 % Lymphocytes (%) (Auto) 9.1 % Monocytes (%) (Auto) 1.2 % Eosinophils (%) (Auto) 0.0 % Basophils (%) (Auto) 0.1 % Neutrophils # (Auto) 7.23 K/uL Lymphocytes # (Auto) 0.74 K/uL Monocytes # (Auto) 0.10 K/uL Eosinophils # (Auto) 0.00 K/uL Basophils # (Auto) 0.01 K/uL RDW Standard Deviation 44.2 fL RDW Coefficient of Variation 14.5 % Immature Granulocyte % (Auto) 0.6 % Immature Granulocyte # (Auto) 0.05 K/uL Prothrombin Time 10.0 SECONDS Prothromb Time International Ratio 0.9 Activated Partial Thromboplast Time 25.4 SECONDS Partial Thromboplastin Ratio 1.0 Sodium Level 138 mmol/L Potassium Level 3.8 mmol/L Chloride Level 106 mmol/L Carbon Dioxide Level 20 mmol/L Anion Gap 12.0 mmol/L Blood Urea Nitrogen 6 mg/dl Creatinine 0.95 mg/dl Est Creatinine Clear Calc Drug Dose 69.0 ml/min Estimated GFR () 80.4 Estimated GFR (Non- 69.4 BUN/Creatinine Ratio 6.3 Random Glucose 218 mg/dl Calcium Level 9.0 mg/dl Magnesium Level 2.1 mg/dl Total Bilirubin 0.4 mg/dl Aspartate Amino Transf (AST/SGOT) 7 U/L Alanine Aminotransferase (ALT/SGPT) 21 U/L Alkaline Phosphatase 62 U/L Total Creatine Kinase 62 U/L Creatine Kinase MB < 0.5 ng/ml Creatine Kinase MB Ratio Total Protein 7.5 gm/dl Albumin 3.8 gm/dl Globulin 3.7 gm/dl Albumin/Globulin Ratio 1.0 Lipase 143 U/L Thyroid Stimulating Hormone (TSH) 0.416 uIu/ml Bedside D-Dimer 241 ng/mlFEU Bedside Troponin I 0.000 ng/ml [id number] Natriuretic Peptide 48 pg/ml Urine Test NEG Urine Opiates Screen NEG Urine Methadone, Qualitative NEG Urine Barbiturates NEG Urine Phencyclidine (PCP) Level NEG Ur Amphetamine/Methamphetamine NEG MDMA (Ecstasy) Screen NEG Urine Benzodiazepines Screen NEG Urine Cocaine Metabolite NEG Urine Marijuana (THC) NEG Test 02/06/17 02:12 02/06/17 05:53 02/06/17 05:59 02/06/17 11:59 Creatine Kinase MB < 0.5 ng/ml < 0.5 ng/ml Troponin I < 0.015 ng/ml < 0.015 ng/ml Triglycerides Level 311 mg/dl Cholesterol Level 126 mg/dl HDL Cholesterol 42 mg/dl LDL Cholesterol, Calculated 22 mg/dl VLDL Cholesterol, Calculated 62 mg/dl Cholesterol/HDL Ratio 3.0 Creatine Kinase MB Ratio Assessment & Plan Chest Pain associated with SOB Need to R/O ACS Risk factors: HTN, Obesity and Family cardiac markers are negative EKG:Sinus tachycardia with no significant ST changes Patient is allergic to Aspirin, Continue beta willie Normal Ddimer cxr is negative cardiology consulted and recommended dobutamine stress test today Dobutamine stress test negative. case discussed with Dr. Gomes Pt is stable from cardiac standpoint to be discharged home.. Echo showed: The left ventricle is normal in size. * Left ventricular systolic function is normal. * Ejection Fraction = 60-65%. * The right ventricle is normal size. * The right ventricular systolic function is normal. * The left atrial size is normal. * Right atrial size is normal. * No significant vavular pathology. Hypertensive Urgency Likely secondary to anxiety issues Missed her last night dose BP med Continue lisinopril, BB Lopressor PRN Currently BP improved Continue monitor BP Tachycardia Palpitation Possible related to steroid, and anxiety EKG showed sinus tachycardia Tele monitor showed HR btw 90 to 110 Continue Toprol Headache Likely secondary to migraine CT head: No acute pathology Continue amitriptyline H/O asthma: Doesn't seemed to have exacerbation clinically No wheezing on exam Started on steroid taper yesterday Will d/c steroid continue DuoNeb PRN Anxiety disorder: Continue home meds GERD: Continue PPI DENISE: Continue CPAP Qhs DVT Px: SCDs Code Status Full Code Disposition Anticipate discharge today if stress test negative Consultants: cardio Current Inpatient Medications: Current Inpatient Medications Medications (Trade) Dose Ordered Sig/Barron Route Start Time Stop Time Status Last Admin Dose Admin Sodium Chloride (Nss 1000ml) 1,000 ml @ 50 mls/hr Q20H ONCE IV 02/06/17 00:00 02/06/17 19:59 02/06/17 01:00 50 MLS/HR Acetaminophen (Tylenol Tab) 650 mg Q4H PRN PO 02/06/17 00:00 03/08/17 00:00 02/06/17 08:51 650 MG Ondansetron HCl (Zofran Inj) 4 mg Q6H PRN IV 02/06/17 00:00 03/08/17 00:00 Nitroglycerin (Nitrostat Tab) 0.4 mg UD PRN SL 02/06/17 00:00 03/08/17 00:00 Albuterol/ Ipratropium (Duoneb) 3 ml QIDR PRN INH 02/06/17 00:00 03/08/17 00:00 Amitriptyline HCl (Elavil Tab) 100 mg HS PO 02/06/17 21:00 03/08/17 20:59 Cetirizine HCl (zyrTEC TAB) 10 mg HS PO 02/06/17 21:00 03/08/17 20:59 Citalopram Hydrobromide (celeXA TAB) 30 mg DAILY PO 02/06/17 09:00 03/08/17 08:59 02/06/17 08:54 30 MG Fluticasone Propionate (Flonase Nasal [place]) 1 sprays BID KAY 02/06/17 09:00 03/08/17 08:59 02/06/17 08:52 1 SPRAYS Lisinopril (Zestril Tab) 20 mg DAILY PO 02/06/17 09:00 03/08/17 08:59 02/06/17 08:53 20 MG Metoprolol Succinate (Toprol Xl Tab) 50 mg DAILY PO 02/06/17 09:00 03/08/17 08:59 02/06/17 08:53 50 MG Pantoprazole Sodium (Protonix Tab) 40 mg DAILY PO 02/06/17 09:00 03/08/17 08:59 02/06/17 08:53 40 MG Miscellaneous Information (Order Awaiting Action) 1 ea QS N/A 02/06/17 08:00 03/08/17 07:59 Ranitidine HCl (zANTac TAB) 300 mg HS PO 02/06/17 21:00 03/08/17 20:59 Metoprolol Tartrate (Lopressor Iv) 5 mg Q6 PRN IV 02/06/17 00:15 03/08/17 00:14 Prednisone (PredniSONE TAB) 30 mg DAILY PO 02/06/17 09:00 03/08/17 08:59 02/06/17 08:54 30 MG Miscellaneous (Iv Fluids Completed) 1 ea PRN PRN N/A 02/06/17 00:45 02/06/18 00:44
--- NOTE | 2017-02-06 14:42 | DOBUTAMINE ECHO ---
*NOTICE TO RECEIVING LIBERTARIAN AGENCY This information is strictly Confidential and protected under [place] law. [place] law prohibits you from making any further disclosure of this information unless further disclosure is expressly permitted by the written consent of the person to whom it pertains or is authorized by law. A general authorization for the release of medical or other information is not sufficient for this purpose. Hospital accepts no responsibility if the information is made available to any other person, INCLUDING THE PATIENT. Interpretation Summary * Name: RONIT LINDO Study Date: 02/06/2017 10:55 AM BP: 147/69 mmHg * Patient Location: .2E\S\E209\S\1 HR: 100 * : 1965 (M/d/yyyy) Gender: Female Height: 59 in * Age: 51 yrs Ethnicity: [place] Weight: 186 lb * Ordering Physician: Jamee Swift * Referring Physician: Self, Referred * Performed By: Pina Davila RCS * * Reason For Study: Chest Pain * BSA: 1.8 m2 * STRESS STUDY: Normal pharmacologic stress echocardiogram. No echocardiographic or ECG evidence of myocardial ischemia having achieved heart rate adequate for diagnostic purposes. Procedure Details * DOBUTAMINE ECHO, CPT#40259 Stress Parameters * Baseline ECG was essentially normal. No symptoms were noted. * Stress ECG: No ST changes. No arrhythmias. * The stress ECG response was normal * The stress portion of this study was personally supervised by the undersigned interpreting physician. * Rest heart rate was '100' BPM. * Rest blood pressure was '147/69' * Maximum heart rate achieved was 157 bpm. * Maximum heart rate was 92 % of maximum age-predicted heart rate. * Maximum blood pressure was '161/52' * Maximum Dobutamine infusion rate was '40' mcg/kg/min. * Dobutamine infusion was terminated due to achieving target heart rate * A total of 5 mg of IV Metoprolol was administered to reverse Dobutamine-induced tachycardia. * The patient did not exhibit any symptoms during drug infusion. * Normal blood pressure response to exercise.
[2017-02-06 15:54] VITALS: BP 146/71; PULSE 94; TEMP 36.8; O2SAT 98
--- NOTE | 2017-02-06 16:18 | Discharge Instructions ---
Discharge Instructions Date of Service Feb 06, 2017. Admission Reason for Admission: Chest Pain Discharge Discharge Diagnosis / Problem: Chest pain, Hypertensive Urgency, Palpitation, tachycardia, Anxiety Discharge Goals Goal(s): Decrease discomfort, Improve function, Improve disease control Activity Recommendations Activity Limitations: resume your previous activity (as tolerated) . Instructions / Follow-Up Instructions / Follow-Up Follow up appointment with your primary care physician Dr. Miroslava Wiggins on February 10 @ 11:15 am Current Hospital Diet Patient's current hospital diet: AHA Diet (Heart Healthy) Discharge Diet Recommended Diet: AHA Diet (Heart Healthy) Procedures Procedures Performed: negative Dobutamine stress test Pending Studies Studies pending at discharge: no Laboratory Results Lipid Panel Test 02/06/17 05:53 Range/Units Triglycerides Level 311 H 0-150 mg/dl Cholesterol Level 126 0-200 mg/dl HDL Cholesterol 42 mg/dl Cholesterol/HDL Ratio 3.0 LDL Cholesterol, Calculated 22 mg/dl Medical Emergencies . Who to Call and When: Medical Emergencies: If at any time you feel your situation is an emergency, please call 911 immediately. . Non-Emergent Contact Non-Emergency issues call your: Primary Care Provider . . "Provider Documentation" section prepared by Blas Andrea. . VTE Core Measure Inpt VTE Proph given/why not?: SCD's
[2017-02-06 16:33] VITALS: BP 146/71; PULSE 94; TEMP 36.8; O2SAT 98
[2017-02-06] MEDS ORDERED: AMITRIPTYLINE HCL 100 MG TAB PO SCH (21:00)
[2017-02-06] MEDS ORDERED: CETIRIZINE HCL 10 MG TAB PO SCH (21:00)
[2017-02-06] MEDS ORDERED: RANITIDINE HCL 150 MG TAB PO SCH (21:00)
--- NOTE | 2017-02-07 17:23 | Discharge Summary ---
Discharge Summary Date of Service Feb 07, 2017. Discharge Summary Admission Date: Feb 05, 2017 at 23:59 Discharge Date: Feb 06, 2017 Discharge Disposition: Home Principal Diagnosis: Chest Pain Secondary Diagnoses/Problems: Hypertension Urgency Tachycardia H/o Asthma Anxiety disorder DENISE Procedures: Dobutamine stress echo negative Consultations: cardio Medication Reconciliation Continued Medications: Albuterol (Ventolin Hfa) 60 Puffs/5400 Mcg Aers 2 PUFFS INH UD PRN for Asthma Symptoms Amitriptyline Hcl (Elavil) 100 Mg Tab 100 MG PO HS, TAB Azelastine Hcl (Astelin Nasal [place]) 200 Sprays/30 Ml [place] 1-2 SPRAYS KAY BID, BTL Cetirizine Hcl (Zyrtec) 10 Mg Tab 10 MG PO HS, TAB Citalopram Hydrobromide (Celexa) 10 Mg Tab 30 MG PO DAILY, TAB Fluticasone Propionate (Nasal) (Flonase Allergy Relief) 50 Mcg/Act Spr 1 SPRAY KAY BID Lisinopril (Zestril) 20 Mg Tab 20 MG PO DAILY, TAB Metoprolol Succ (Toprol Xl) (Toprol-Xl) 50 Mg Tabcr 50 MG PO DAILY, TAB Norgestimate-Ethinyl Estradiol (Ortho Tri-Cyclen Lo) 1 Tab Tab 1 TAB PO DAILY, TAB Pantoprazole (Protonix) 40 Mg Tab 40 MG PO DAILY, TAB Ranitidine Hcl (Zantac) 300 Mg Tab 300 MG PO HS, TAB Discontinued Medications: Prednisone Tab (Prednisone) 10 Mg Tab 10 MG PO UD, TAB TAPER DOWN DOSING PRESCRIBED 02/04/2017 FOLLOWS: TAKE 5 TABLETS (50 MG) DAILY FOR 2 DAYS THEN, TAKE 4 TABLETS (40 MG) DAILY FOR 2 DAYS THEN, TAKE 3 TABLETS (30 MG) DAILY FOR 2 DAYS THEN, TAKE 2 TABLETS (20 MG) DAILY FOR 2 DAYS THEN, TAKE 1 TABLET (10 MG) DAILY FOR 2 DAYS. Admission Information HPI (per Admitting provider): Patient is a 51 Yr old female with PMH of Anxiety disorder, IBS, HTN, GERD, DENISE on CPAP, Asthma, Migraine and other problems presents for evaluation of chest pain. Patient states she was working at [employer] in [place] on Thursday and was found to have tachycardia and high BP and was advised to get medical evaluation. D-dimer was normal at that time. She has been treated with prednisone taper for possible Asthma exacerbation. States having palpitations since Thursday and complains of retrosternal dull chest pain today which is intermittent, radiates to left arm, started at rest without any aggravating/ relieving factors. Reports associated nausea, SOB, diaphoresis with chest pain. Reports having a lot of stress secondary to her daughter having issues at school. Currently while in ED, denies chest pain, SOb, wheezing. Also denies history of fever, chills, abd pain, diarrhea, urinary symptoms. Has had headache which is occipital and frontal which improved currently. Physical Exam (per Admitting): General Appearance: WD/WN, no apparent distress, + obese Head: normocephalic, atraumatic Eyes: normal inspection, PERRL, EOMI, sclerae normal ENT: normal ENT inspection, hearing grossly normal Neck: supple, trachea midline Respiratory/Chest: chest non-tender, lungs clear, normal breath sounds, no respiratory distress, no accessory muscle use, + pertinent finding (Trace pedal edema) Cardiovascular: regular rate, rhythm, no murmur, normal peripheral pulses, + tachycardia Abdomen/GI: normal bowel sounds, non tender, soft, no organomegaly Back: normal inspection Extremities/Musculoskelatal: normal inspection, no calf tenderness, + pertinent finding (Trcae pedal edema) Neurologic/Psych: die tripper II-XII nml as tested, no motor/sensory deficits, alert , normal mood/affect, oriented x 3 Skin: normal color, warm/dry Lymphatic: no adenopathy Hospital Course Chest Pain associated with SOB Need to R/O ACS Risk factors: HTN, Obesity and Family cardiac markers are negative EKG:Sinus tachycardia with no significant ST changes Patient is allergic to Aspirin, Continue beta willie Normal Ddimer cxr is negative cardiology consulted and recommended dobutamine stress test today Dobutamine stress test negative. case discussed with Dr. Gomes Pt is stable from cardiac standpoint to be discharged home.. Echo showed: The left ventricle is normal in size. * Left ventricular systolic function is normal. * Ejection Fraction = 60-65%. * The right ventricle is normal size. * The right ventricular systolic function is normal. * The left atrial size is normal. * Right atrial size is normal. * No significant vavular pathology. Hypertensive Urgency Likely secondary to anxiety issues Missed her last night dose BP med Continue lisinopril, BB Lopressor PRN Currently BP improved Continue monitor BP Tachycardia Palpitation Possible related to steroid, and anxiety EKG showed sinus tachycardia Tele monitor showed HR btw 90 to 110 Continue Toprol Headache Likely secondary to migraine CT head: No acute pathology Continue amitriptyline H/O asthma: Doesn't seemed to have exacerbation clinically No wheezing on exam Started on steroid taper yesterday Will d/c steroid continue DuoNeb PRN Anxiety disorder: Continue home meds GERD: Continue PPI DENISE: Continue CPAP Qhs DVT Px: SCDs Code Status Full Code Disposition Anticipate discharge today if stress test negative Total time spent on discharge = 35 min This includes examination of the patient, discharge planning, medication reconciliation, and communication with other providers. Discharge Instructions Discharge Instructions Date of Service Feb 06, 2017. Admission Reason for Admission: Chest Pain Discharge Discharge Diagnosis / Problem: Chest pain, Hypertensive Urgency, Palpitation, tachycardia, Anxiety Discharge Goals Goal(s): Decrease discomfort, Improve function, Improve disease control Activity Recommendations Activity Limitations: resume your previous activity (as tolerated) . Instructions / Follow-Up Instructions / Follow-Up Follow up appointment with your primary care physician Dr. Miroslava Wiggins on February 10 @ 11:15 am Current Hospital Diet Patient's current hospital diet: AHA Diet (Heart Healthy) Discharge Diet Recommended Diet: AHA Diet (Heart Healthy) Procedures Procedures Performed: negative Dobutamine stress test Pending Studies Studies pending at discharge: no Laboratory Results Lipid Panel Test 02/06/17 05:53 Range/Units Triglycerides Level 311 H 0-150 mg/dl Cholesterol Level 126 0-200 mg/dl HDL Cholesterol 42 mg/dl Cholesterol/HDL Ratio 3.0 LDL Cholesterol, Calculated 22 mg/dl Medical Emergencies . Who to Call and When: Medical Emergencies: If at any time you feel your situation is an emergency, please call 911 immediately. . Non-Emergent Contact Non-Emergency issues call your: Primary Care Provider . . "Provider Documentation" section prepared by Blas Andrea. . VTE Core Measure Inpt VTE Proph given/why not?: SCD's Additional Copies To Miroslava Wiggins D.O.
== END 2017-02-06 18:17 | disposition home or self-care (01) ==
LOC: ENRESERVDT → ENRESERVTM → C.EDB 19:37 → C.2E 23:59
PROVIDERS: ADMIT Internal Medicine; ATTEND Internal Medicine
DX: R07.9 Chest pain, unspecified (principal); I16.0 Hypertensive urgency; J45.909 Unspecified asthma, uncomplicated; K21.9 Gastro-esophageal reflux disease without esophagitis; G47.33 Obstructive sleep apnea (adult) (pediatric); E22.1 Hyperprolactinemia; R60.9 Edema, unspecified; F41.9 Anxiety disorder, unspecified; Z82.49 Family history of ischemic heart disease and other diseases of the circulatory system; Z79.899 Other long term (current) drug therapy; R00.0 Tachycardia, unspecified